=== PATIENT | female | born 1955 | race Caucasian/White ===

== ENCOUNTER 2023-03-10 13:46 | Inpatient (IN) | payer MEDICAID ==
[~2023-03-10] VITALS: Ht 149.9 cm; Wt 42.2 kg
[2023-03-10 15:07] LABS: BASOPHILS % 0.2 % (0.0-2.0); HEMATOCRIT. 34.6 % (36.0-48.0); HEMOGLOBIN. 11.6 g/dL (12.0-16.0); LYMPHOCYTES % 7.2 % (20.0-50.0); MEAN CORPUSCULAR VOLUME 89.2 fL (81.0-99.0); MEAN PLATELET VOLUME 8.5 fl (7.4-10.4); NEUTROPHILS % 88.6 % (40.0-76.0); PLATELET 290 x1000/uL (130-400); RED BLOOD CELL COUNT 3.88 mill/uL (4.2-5.4); RED CELL DISTRIBUTION WIDTH 12.7 % (11.6-14.6)
[2023-03-10 15:16] LABS: CHLORIDE 87 mEq/L (98-107)
[2023-03-10 17:27] LABS: CLARITY URINE CLOUDY (CLEAR); COLOR URINE YELLOW (YELLOW); KETONES URINE 1+ (NEGATIVE); LEUKOCYTE ESTERASE URINE 2+ (NEGATIVE); NITRITE URINE NEGATIVE (NEGATIVE); OCCULT BLOOD URINE 1+ (NEGATIVE); PH URINE 5.5 (4.5-8.0); PROTEIN URINE TRACE (NEGATIVE); UROBILINOGEN URINE 0.2 E.U./dL (0.2-1.0)
[2023-03-10] MEDS ORDERED: SODIUM CHLORIDE 0.9% 1,000 ML IV ONE (17:30)
[2023-03-10 17:32] LABS: BETA HYDROXYBUTYRATE 4.2 mMol/L (0.0-0.3)
[2023-03-10 18:31] LABS: BG BASE EXCESS -4.4 mmol/L (-2.0-2.0); BG CARBOXYHEMOGLOBIN 0.6 % (0.5-1.5); BG DEOXYHEMOGLOBIN 2.4 % (0.0-5.0); BG FRACTION INSPIRED OXYGEN 21; BG HCO3 ACT 18.1 mmol/L (22.0-26.0); BG METHEMOGLOBIN 0.2 % (0.0-1.5); BG OXYGEN SATURATION 97.6 % (92.0-98.5); BG OXYHEMOGLOBIN 96.8 % (94.0-97.0); BG PCO2 26.5 mmHg (35.0-45.0); BG PH 7.452 (7.350-7.450); BG PO2 104.2 mmHg (75.0-100.0); BG SAMPLE SITE RIGHT BRACHIAL; BG TOTAL HEMOGLOBIN 12.7 g/dL (12.0-18.0); BG VENT MODE ROOM AIR
[2023-03-10] MEDS ORDERED: INSULIN REGULAR (HUMULIN R) 300UNITS/3ML VIAL SUBCUT NR (18:45)
[2023-03-10] MEDS ORDERED: CEFTRIAXONE 1GM PREMIX 50 ML IV NR (19:00)
[2023-03-10] MEDS ORDERED: DEXTROSE 50% WATER 50ML SYRINGE IV PRN (21:00)
[2023-03-10] MEDS ORDERED: DOCUSATE SODIUM 100MG CAPSULE PO PRN (21:00)
[2023-03-10] MEDS ORDERED: MAGNESIUM/ALUMINUM HYDROXIDE/SIMETHICONE 30ML UDC PO PRN (21:00)
[2023-03-10] MEDS ORDERED: HYDROCODONE/ACETAMINOPHEN 5/325MG TABLET PO PRN (21:00)
[2023-03-10] MEDS ORDERED: IPRATROPIUM/ALBUTEROL 0.5-3(2.5)MG/3ML NEB HHN PRN (21:00)
[2023-03-10] MEDS ORDERED: ONDANSETRON HCL 4MG/2ML INJ IV PRN (21:00)
[2023-03-10] MEDS ORDERED: GUAIFENESIN 200MG/10ML SUGAR FREE UDC PO PRN (21:00)
[2023-03-10] MEDS ORDERED: ACETAMINOPHEN 325MG TABLET PO PRN ×2 (21:00)
[2023-03-10] MEDS ORDERED: NA PHOS,M-B/NA PHOS,DI-BA ENEMA 118ML PR PRN (21:00)
[2023-03-10] MEDS ORDERED: CLONIDINE 0.1MG TABLET PO PRN (21:00)
[2023-03-10 22:04] LABS: BASOPHILS % 0.2 % (0.0-2.0); EOSINOPHILS % 0.1 % (0.0-5.0); HEMATOCRIT. 34.8 % (36.0-48.0); HEMOGLOBIN. 11.5 g/dL (12.0-16.0); MEAN CORPUSCULAR HEMOGLOBIN 28.7 pg (28.0-32.0); MEAN CORPUSCULAR VOLUME 87.3 fL (81.0-99.0); NEUTROPHILS % 85.7 % (40.0-76.0); PLATELET 285 x1000/uL (130-400); RED BLOOD CELL COUNT 3.99 mill/uL (4.2-5.4); RED CELL DISTRIBUTION WIDTH 12.6 % (11.6-14.6)
[2023-03-10 22:21] LABS: PROTHROMBIN TIME 10.7 sec (9.6-11.0)
[2023-03-10 22:26] LABS: BETA HYDROXYBUTYRATE 2.4 mMol/L (0.0-0.3); T4 FREE 0.92 ng/dL (0.76-1.46)
[2023-03-10 22:31] LABS: FERRITIN 219 ng/mL (10-291)
[2023-03-10] MEDS ORDERED: POTASSIUM CHLORIDE 20MEQ TABLET SR PO NR (22:45)
[2023-03-10 22:52] LABS: FOLIC ACID (FOLATE) SERUM > 20.00 ng/mL (>5.38); VITAMIN B12 SERUM > 2000.0 pg/mL (211-911)
[2023-03-10] MEDS: BLOOD SUGAR DIAGNOSTIC STRIP TEST SCH (23:17)
[2023-03-10] MEDS: FAMOTIDINE 20MG TABLET PO SCH (23:30)
[2023-03-10] MEDS: INSULIN LISPRO 100 UNITS/ML SUBCUT SCH (23:31)
[2023-03-10] MEDS: ENOXAPARIN 40MG/0.4ML SYR SUBCUT SCH (23:47)
[2023-03-11 00:30] VITALS: BP 122/64
[2023-03-11] MEDS: SODIUM CHLORIDE 0.9% 1,000 ML IV SCH ×3 (01:27→21:36)
[2023-03-11 04:00] VITALS: BP 111/54
[2023-03-11] MEDS: BLOOD SUGAR DIAGNOSTIC STRIP TEST SCH ×4 (05:48→21:34)
[2023-03-11 06:15] LABS: BASOPHILS % 0.4 % (0.0-2.0); EOSINOPHILS % 0.1 % (0.0-5.0); HEMOGLOBIN. 11.5 g/dL (12.0-16.0); LYMPHOCYTES % 10.1 % (20.0-50.0); MEAN CORPUSCULAR HEMOGLOBIN 29.3 pg (28.0-32.0); MEAN CORPUSCULAR VOLUME 86.7 fL (81.0-99.0); MONOCYTES % 5.7 % (2.0-8.0); NEUTROPHILS % 83.7 % (40.0-76.0); PLATELET 282 x1000/uL (130-400); RED BLOOD CELL COUNT 3.92 mill/uL (4.2-5.4); RED CELL DISTRIBUTION WIDTH 12.6 % (11.6-14.6)
[2023-03-11] MEDS: INSULIN LISPRO 100 UNITS/ML SUBCUT SCH ×4 (06:31→21:37)
[2023-03-11 08:00] VITALS: BP_SYST 119; BP_SYST 134; BP_DIAS 59; BP_DIAS 63
[2023-03-11] MEDS: INSULIN GLARGINE 100 UNITS/ML SUBCUT SCH (09:46)
[2023-03-11 12:00] VITALS: BP 132/62
[2023-03-11 16:00] VITALS: BP 110/53
[2023-03-11 20:00] VITALS: BP 102/52
[2023-03-11] MEDS ORDERED: CEFTRIAXONE 1GM PREMIX 50 ML IV SCH (21:00)
[2023-03-11] MEDS: ENOXAPARIN 40MG/0.4ML SYR SUBCUT SCH (21:34)
[2023-03-11] MEDS: FAMOTIDINE 20MG TABLET PO SCH (21:34)
[2023-03-11] MEDS ORDERED: CEFTRIAXONE 1,000 MG in DEXTROSE 5% WATER 50 ML IV NR (22:00)
[2023-03-12] VITALS: BP 108/54
[2023-03-12 04:00] VITALS: BP 132/72
[2023-03-12] MEDS: BLOOD SUGAR DIAGNOSTIC STRIP TEST SCH ×3 (05:58→20:48)
[2023-03-12] MEDS: INSULIN LISPRO 100 UNITS/ML SUBCUT SCH ×4 (06:16→20:47)
[2023-03-12 08:00] VITALS: BP 106/55
[2023-03-12] MEDS ORDERED: NALOXONE HCL 0.4MG/ML VIAL IV PRN (08:45)
[2023-03-12] MEDS: ENOXAPARIN 30MG/0.3ML SYR SUBCUT SCH (09:05)
[2023-03-12] MEDS: INSULIN GLARGINE 100 UNITS/ML SUBCUT SCH (09:23)
[2023-03-12] MEDS ORDERED: KETOROLAC 15MG/ML VIAL IV PRN (10:15)
[2023-03-12 12:00] VITALS: BP 100/53
[2023-03-12 16:00] VITALS: BP 109/56
[2023-03-12 20:00] VITALS: BP 132/78
[2023-03-12] MEDS: SODIUM CHLORIDE 0.9% 1,000 ML IV SCH (20:47)
[2023-03-12] MEDS: CEFTRIAXONE 1,000 MG in DEXTROSE 5% WATER 50 ML IV SCH (20:47)
[2023-03-12] MEDS: FAMOTIDINE 20MG TABLET PO SCH (20:48)
[2023-03-13] VITALS: BP 129/80
[2023-03-13] MEDS: SODIUM CHLORIDE 0.9% 1,000 ML IV SCH ×2 (02:20→11:18)
[2023-03-13 04:00] VITALS: BP 149/68
[2023-03-13] MEDS: INSULIN LISPRO 100 UNITS/ML SUBCUT SCH ×4 (06:17→20:48)
[2023-03-13] MEDS: BLOOD SUGAR DIAGNOSTIC STRIP TEST SCH ×4 (06:17→20:47)
[2023-03-13 08:00] VITALS: BP 148/72
[2023-03-13] MEDS: ENOXAPARIN 30MG/0.3ML SYR SUBCUT SCH (08:14)
[2023-03-13] MEDS: INSULIN GLARGINE 100 UNITS/ML SUBCUT SCH (09:54)
[2023-03-13 12:00] VITALS: BP 131/72
[2023-03-13 16:00] VITALS: BP 115/59
[2023-03-13 20:00] VITALS: BP 118/66
[2023-03-13] MEDS: CEFTRIAXONE 1,000 MG in DEXTROSE 5% WATER 50 ML IV SCH (20:51)
[2023-03-13] MEDS: FAMOTIDINE 20MG TABLET PO SCH (20:51)
[2023-03-14] VITALS: BP 118/66
[2023-03-14 04:00] VITALS: BP 121/64
[2023-03-14] MEDS: SODIUM CHLORIDE 0.9% 1,000 ML IV SCH (05:04)
[2023-03-14] MEDS: INSULIN LISPRO 100 UNITS/ML SUBCUT SCH ×2 (06:43→12:04)
[2023-03-14] MEDS: BLOOD SUGAR DIAGNOSTIC STRIP TEST SCH ×2 (06:43→11:45)
[2023-03-14 08:00] VITALS: BP 135/73
[2023-03-14] MEDS: ENOXAPARIN 30MG/0.3ML SYR SUBCUT SCH (08:54)
[2023-03-14] MEDS ORDERED: FAMO-135 MT (10:08)
[2023-03-14] MEDS ORDERED: LEVO-65 MT (10:08)
[2023-03-14] MEDS: INSULIN GLARGINE 100 UNITS/ML SUBCUT SCH (10:19)
== END 2023-03-14 15:41 | disposition home or self-care (01) | DRG 720 ==
LOC: ER 15:29 → 8WST 20:48 → ENRESERV 23:13
PROVIDERS: ADMIT Internal Medicine; ATTEND Internal Medicine
DX: A41.9 Sepsis, unspecified organism (principal); N17.0 Acute kidney failure with tubular necrosis; E43 Unspecified severe protein-calorie malnutrition; E87.8 Other disorders of electrolyte and fluid balance, not elsewhere classified; E87.1 Hypo-osmolality and hyponatremia; E86.0 Dehydration; D50.8 Other iron deficiency anemias; E11.65 Type 2 diabetes mellitus with hyperglycemia; N39.0 Urinary tract infection, site not specified; Z68.1 Body mass index [BMI] 19.9 or less, adult; Z79.4 Long term (current) use of insulin; Z91.148 Patient's other noncompliance with medication regimen for other reason
CPT/HCPCS: 36415; 36600; 71045; 74176; 76770; 80048; 80053; 80061; 81003; 82010; 82375; 82570; 82607; 82728; 82746; 82805; 82962; 83036; 83540; 83550; 83605; 83735; 83880; 84100; 84145; 84300; 84439; 84443; 84484; 85025; 87186; 93005; 93306; 93880; 93970; 97161; 97166; 99285; J0696; J1650; J1815; J7030; J7060